=== PATIENT | female | born 1980 | race Caucasian/White ===

== ENCOUNTER → 2016-04-05 | Outpatient (CLI) | payer OTHER ==
--- NOTE | 2016-04-05 14:52 | US ---
Thyroid Sonography Clinical History: 36-year-old female presenting for follow up of thyroid nodules. ICD-10 Diagnostic Code: E04.1. Technique: A linear 12 MHz transducer was used to sonographically evaluate each lobe of the thyroid g land and the isthmus. Color Doppler was also used. Comparison Study: Thyroid sonography, dated August 03, 2015. Findings: Right Thyroid Lobe: This measures 4.8 x 1.5 x 1.3 cm. In the lateral midpole, there is a complex-appe aring colloid cyst measuring 4 x 4 x 5 mm previously measuring 5 x 6 x 9 mm. Isthmus: This measures 0.33 cm in AP diameter; however, along the posterior inferior margin, there is a heterogeneous, mildly hypervascular complex cystic-solid nodule currently measuring 1.1 x 0.7 x 1. 1 cm and previously measuring 1.3 x 1.2 x 0.8 cm. Left Thyroid Lobe: This measures 4.1 x 1.1 x 1.0 cm. In the lateral midpole, there is a solid nodule with peripheral hypoechoic halo with some mild hyperemia, measuring 0.6 x 0.5 x 0.5 cm and previously measuring 0.5 x 0.5 x 0.5 cm. Cursory evaluation of the cervical lymph node chains reveals a benign 1.2 x 0.4 x 0.9 cm level 2 lymp h node, and a 0.4 x 0.2 cm left level 3 lymph node. Impression: Sonographically stable appearance compared to August 03, 2015, with no significant interval change in the size or distribution of the thyroid nodules.
== END ==
LOC: FIMAGING 12:39
PROVIDERS: ATTEND Emergency Medicine
DX: E04.1 Nontoxic single thyroid nodule (principal)

== ENCOUNTER → 2017-09-20 | Outpatient (CLI) | payer OTHER | LOC: FIMAGING 12:41 | PROVIDERS: ATTEND Family Medicine | DX: E04.1 Nontoxic single thyroid nodule (principal); E03.9 Hypothyroidism, unspecified ==